=== PATIENT | female | born 1995 | race Caucasian/White ===

== ENCOUNTER 2017-04-03 16:58 | Emergency (ER) | payer OTHER | END 2017-04-03 18:23 | disposition home or self-care (01) | LOC: E/R 16:58 | DX: J02.9 Acute pharyngitis, unspecified (principal) | CPT/HCPCS: 99283; Z7502 ==

== ENCOUNTER 2017-10-02 15:58 | Emergency (ER) | payer OTHER ==
[2017-10-02 16:57] LABS: URINE PH (Dip) POC 5.5 (5.0-8.5)
[2017-10-02 16:57] LABS: URINE BLOOD (Dip) POC Negative (NEGATIVE); URINE GLUCOSE (Dip) POC Negative (NEGATIVE); URINE KETONES (Dip) POC Negative (NEGATIVE); URINE LEUKOCYTE EST (Dip) POC Trace (NEGATIVE); URINE NITRITE (Dip) POC Negative (NEGATIVE); URINE TOTAL PROTEIN POC Negative (NEGATIVE)
== END 2017-10-02 17:50 | disposition home or self-care (01) ==
LOC: FTE 15:58
DX: N39.0 Urinary tract infection, site not specified (principal)
CPT/HCPCS: 72100; 81003; 81025; 99283-25

== ENCOUNTER 2017-12-17 17:31 | Emergency (ER) | payer OTHER ==
[2017-12-17 17:48] LABS: URINE PH (Dip) POC 6.5 (5.0-8.5)
[2017-12-17 17:48] LABS: URINE BLOOD (Dip) POC Trace-intact (NEGATIVE); URINE GLUCOSE (Dip) POC Negative (NEGATIVE); URINE KETONES (Dip) POC Negative (NEGATIVE); URINE LEUKOCYTE EST (Dip) POC 1+ (NEGATIVE); URINE NITRITE (Dip) POC Negative (NEGATIVE); URINE TOTAL PROTEIN POC Negative (NEGATIVE)
== END 2017-12-17 18:07 | disposition home or self-care (01) ==
LOC: FTE 17:31
DX: N30.90 Cystitis, unspecified without hematuria (principal)
CPT/HCPCS: 81003; 81025; 99283

== ENCOUNTER 2018-04-07 11:40 | Emergency (ER) | payer OTHER | END 2018-04-07 12:56 | disposition home or self-care (01) | LOC: FTE 11:40 | DX: H92.01 Otalgia, right ear (principal); H61.21 Impacted cerumen, right ear; M94.0 Chondrocostal junction syndrome [Tietze]; L85.8 Other specified epidermal thickening | CPT/HCPCS: 69209; 99282-25 ==